=== PATIENT | female | born 1995 | race Caucasian/White ===

== ENCOUNTER 2019-02-14 13:56 | Outpatient (CLI) | payer OTHER ==
[2019-02-14 19:11] LABS: THYROID STIMULATING HORMONE 20.68 uIU/mL (0.34-5.60)
[2019-02-14 19:13] LABS: FREE T4 (FREE THYROXINE) 0.86 ng/dL (0.58-1.64)
== END 2019-02-14 23:59 | disposition home or self-care (01) ==
LOC: LAB.WCP 13:56
PROVIDERS: ATTEND Family Medicine
DX: E03.9 Hypothyroidism, unspecified (principal)
CPT/HCPCS: 36415; 84439; 84443; 84481

== ENCOUNTER 2019-08-28 07:33 | Outpatient (CLI) | payer OTHER ==
[2019-08-28 07:54] LABS: HCG UR QUAL NEGATIVE
[2019-08-28 08:07] LABS: ALBUMIN 4.3 g/dL (3.2-5.5); ALKALINE PHOSPHATASE 59 IU/L (42-121); ALT ALANINE AMINOTRANSFERASE 13 IU/L (10-60); AST ASPARTATE AMINOTRANSFERASE 17 IU/L (10-42); BILIRUBIN,DIRECT 0.1 mg/dL (0.1-0.5); BILIRUBIN,TOTAL 0.6 mg/dL (0.2-1.0); CHOL/HDL RATIO 3.9 (<4.4); CHOLESTEROL 176 mg/dL; HDL CHOLESTEROL 45 mg/dL; LDL CHOLESTEROL,CALCULATED 115 mg/dL; LDL/HDL RATIO 2.6 (<4.4); TOTAL PROTEIN 7.2 g/dL (6.7-8.2); VLDL CHOLESTEROL 16 mg/dL
== END 2019-08-28 07:34 | disposition home or self-care (01) ==
LOC: LAB 07:33
PROVIDERS: ATTEND Dermatology
DX: L70.0 Acne vulgaris (principal); L53.8 Other specified erythematous conditions
CPT/HCPCS: 36415; 80061; 80076; 81025; 83615; 83721

== ENCOUNTER 2019-09-10 12:31 | Outpatient (CLI) | payer OTHER ==
[2019-09-10 13:48] LABS: FREE T4 (FREE THYROXINE) 0.73 ng/dL (0.58-1.64)
== END 2019-09-10 12:32 | disposition home or self-care (01) ==
LOC: LAB 12:31
PROVIDERS: ATTEND Family Medicine
DX: E03.9 Hypothyroidism, unspecified (principal)
CPT/HCPCS: 36415; 84439; 84443

== ENCOUNTER 2019-11-01 12:45 | Outpatient (CLI) | payer OTHER ==
[2019-11-01 13:33] LABS: CRP - C-REACTIVE PROTEIN < 1.0 mg/dL (0-1.0); URIC ACID 4.5 mg/dL (2.6-7.2)
[2019-11-01 13:48] LABS: ALBUMIN 4.5 g/dL (3.2-5.5); ALBUMIN/GLOBULIN RATIO 1.3 (1.0-2.2); ALKALINE PHOSPHATASE 56 IU/L (42-121); ALT ALANINE AMINOTRANSFERASE 10 IU/L (10-60); AST ASPARTATE AMINOTRANSFERASE 17 IU/L (10-42); BILIRUBIN,TOTAL 0.6 mg/dL (0.2-1.0); BUN - BLOOD UREA NITROGEN 14 mg/dL (6-20); CALCIUM 9.4 mg/dL (8.5-10.3); CARBON DIOXIDE - CO2 28 mmol/L (21-32); CHLORIDE 102 mmol/L (101-111); CHOL/HDL RATIO 4.3 (<4.4); CHOLESTEROL 186 mg/dL; CREATININE 0.9 mg/dL (0.4-1.0); GLUCOSE 99 mg/dL (70-100); HDL CHOLESTEROL 43 mg/dL; LDL CHOLESTEROL,CALCULATED 120 mg/dL; LDL/HDL RATIO 2.8 (<4.4); SODIUM 137 mmol/L (135-145); TOTAL PROTEIN 7.9 g/dL (6.7-8.2); VLDL CHOLESTEROL 23 mg/dL
[2019-11-01 19:04] LABS: RHEUMATOID FACTOR NEGATIVE (Negative)
== END 2019-11-01 12:46 | disposition home or self-care (01) ==
LOC: LAB 12:45
PROVIDERS: ATTEND Dermatology
DX: M25.50 Pain in unspecified joint (principal); M54.5 Low back pain
CPT/HCPCS: 36415; 80053; 80061; 81599; 83721; 84550; 84702; 85651; 86038; 86140; 86430; 86812